=== PATIENT | female | born 1985 ===

== ENCOUNTER 2021-02-14 16:49 | Emergency (ER) | payer MEDICAID, OTHER ==
--- NOTE | 2021-02-14 20:22 | Event Note ---
ED Screening Note Date of service: 02/14/21 Time: 20:20 ED Screening Note: 35-year-old homeless female patient with history of depression presents to the emergency department with complaints of suicidal ideations for several weeks. States she came to the emergency department tonight because "she didn't know where else to go." Patient has never attempted suicide before. States she plans to commit suicide by "cutting herself." Patient's suicidal ideations were previously well controlled with Seroquel. States she has not had this medication in over a year. Endorses polysubstance abuse and alcohol use. Patient has consumed alcohol and used cocaine within the last 24 hours. General: Awake, appropriately interactive, no acute distress. Neck: Supple. Full range of motion intact. Cardiovascular: Normal peripheral perfusion. Pulmonary: No respiratory distress. Patient is speaking normally without use of accessory muscles. Skin: No apparent rashes or lesions. Neurological: No facial asymmetry. Speech is clear. Follows commands. Patient is alert and oriented. Musculoskeletal: Moves all four extremities spontaneously with normal range of motion. Psych: Cooperative. Appropriate mood and affect. I have greeted and performed a focused rapid initial assessment of this patient. A comprehensive ED assessment and evaluation of the patient, analysis of all test results, and completion of the medical decision-making process will be conducted by additional ED providers. This initial assessment/diagnostic orders/clinical plan/treatment(s) is/are subject to change based on patients health status, clinical progression and re-assessment. Further treatment and workup at subsequent clinical provider's discretion. Patient/guardian urged not to elope from the ED as their condition may be serious if not clinically assessed and managed.
[2021-02-14 21:17] LABS: Basophils # (Auto) 0.1 K/mm3 (0.0-0.1); Basophils % (Auto) 0.8 % (0.0-1.8); Eosinophils # (Auto) 0.7 K/mm3 (0.0-0.4); Eosinophils % (Auto) 6.6 % (0.0-4.3); Hematocrit 34.4 % (30.3-42.9); Lymphocytes # (Auto) 2.2 K/mm3 (1.2-5.4); Lymphocytes % (Auto) 20.8 % (13.4-35.0); Mean Corpuscular HGB Conc 32 % (30-34); Mean Corpuscular Volume 70 fl (79-97); Monocytes # (Auto) 0.5 K/mm3 (0.0-0.8); Monocytes % (Auto) 4.9 % (0.0-7.3); Platelet Count 476 K/mm3 (140-440); Red Blood Count 4.95 M/mm3 (3.65-5.03); Red Cell Distribution Width 15.7 % (13.2-15.2)
[2021-02-14 21:30] LABS: Alanine Aminotransferase 12 units/L (7-56); Albumin 4.3 g/dL (3.9-5); BUN/Creatinine Ratio 11; Blood Urea Nitrogen 9 mg/dL (7-17); Hemolysis Index 3
--- NOTE | 2021-02-14 23:50 | Emergency Department Report ---
HPI - General Chief Complaint: Psych Time Seen by Provider: 02/14/21 23:24 - HPI HPI: This is a 35-year-old -Citizen Of [place] female presents to the emergency department with a complaint of a 2-week history of suicidal ideations and depression. The patient says she does not have any particular plan. She denies any current hallucinations or any homicidal ideations. She has a history of bipolar disorder and schizophrenia but says that she has not currently on any medications. She denies any past medical history. She is a tobacco smoker but denies any illicit drug use. ED Past Medical Hx - Past Medical History Previous Medical History?: No Hx Psychiatric Treatment: (denies) - Surgical History Past Surgical History?: Yes Additional Surgical History: ED Review of Systems ROS: Stated complaint: BEAHAVORAL PROBLEMS BODYACHES Other details as noted in HPI Comment: All other systems reviewed and negative Constitutional: denies: chills, fever Eyes: denies: eye pain, vision change ENT: denies: ear pain, throat pain Respiratory: denies: cough, shortness of breath Cardiovascular: denies: chest pain, palpitations Gastrointestinal: denies: abdominal pain, vomiting Musculoskeletal: denies: back pain, arthralgia Neurological: denies: headache, weakness Psychiatric: depression, suicidal thoughts. denies: auditory hallucinations, visual hallucinations, homicidal thoughts Physical Exam - Physical Exam Vital Signs: Vital Signs 02/14/21 18:15 Temperature 98.6 F Pulse Rate 74 Respiratory 18 Rate Blood Pressure 149/94 [Right] O2 Sat by Pulse 99 Oximetry Physical Exam: GENERAL: The patient is well-developed well-nourished. HENT: Normocephalic. Atraumatic. Patient has moist mucous membranes. EYES: Extraocular motions are intact. NECK: Supple. Trachea is midline. CHEST/LUNGS: Clear to auscultation. There is no respiratory distress noted. HEART/CARDIOVASCULAR: Regular. There is no tachycardia. There is no murmur. ABDOMEN: Abdomen is soft, nontender. Patient has normal bowel sounds. SKIN: Skin is warm and dry. NEURO: The patient is awake, alert, and cooperative. The patient has no focal neurologic deficits. Normal speech. MUSCULOSKELETAL: There is no tenderness or deformity. ED Course Vital Signs 02/14/21 18:15 Temperature 98.6 F Pulse Rate 74 Respiratory 18 Rate Blood Pressure 149/94 [Right] O2 Sat by Pulse 99 Oximetry ED Medical Decision Making - Lab Data Result diagrams: 02/14/21 20:33 02/14/21 20:33 Lab Results 02/14/21 02/14/21 02/14/21 Range/Units 20:33 20:33 20:33 WBC 10.4 (4.5-11.0) K/mm3 RBC 4.95 (3.65-5.03) M/mm3 Hgb 11.0 (10.1-14.3) gm/dl Hct 34.4 (30.3-42.9) % MCV 70 L (79-97) fl MCH 22 L (28-32) pg MCHC 32 (30-34) % RDW 15.7 H (13.2-15.2) % Plt Count 476 H (140-440) K/mm3 Lymph % (Auto) 20.8 (13.4-35.0) % [place] % (Auto) 4.9 (0.0-7.3) % Eos % (Auto) 6.6 H (0.0-4.3) % Baso % (Auto) 0.8 (0.0-1.8) % Lymph # (Auto) 2.2 (1.2-5.4) K/mm3 [place] # (Auto) 0.5 (0.0-0.8) K/mm3 Eos # (Auto) 0.7 H (0.0-0.4) K/mm3 Baso # (Auto) 0.1 (0.0-0.1) K/mm3 Seg Neutrophils % 66.9 (40.0-70.0) % Seg Neutrophils # 6.9 (1.8-7.7) K/mm3 Sodium 138 (137-145) mmol/L Potassium 3.7 (3.6-5.0) mmol/L Chloride 101.3 (98-107) mmol/L Carbon Dioxide 25 (22-30) mmol/L Anion Gap 15 mmol/L BUN 9 (7-17) mg/dL Creatinine 0.8 (0.6-1.2) mg/dL Estimated GFR > 60 ml/min BUN/Creatinine Ratio 11 % Glucose 77 (65-100) mg/dL Calcium 9.0 (8.4-10.2) mg/dL Total Bilirubin < 0.20 (0.1-1.2) mg/dL AST 19 (5-40) units/L ALT 12 (7-56) units/L Alkaline Phosphatase 116 (35-129) units/L Total Protein 7.7 (6.3-8.2) g/dL Albumin 4.3 (3.9-5) g/dL Albumin/Globulin Ratio 1.3 % TSH 0.341 (0.270-4.200) mlU/mL HCG, Qual (Negative) Salicylates (2.8-20.0) mg/dL Acetaminophen (10.0-30.0) ug/mL Plasma/Serum Alcohol (0-0.07) % 02/14/21 02/14/21 02/14/21 Range/Units 20:33 20:33 20:33 WBC (4.5-11.0) K/mm3 RBC (3.65-5.03) M/mm3 Hgb (10.1-14.3) gm/dl Hct (30.3-42.9) % MCV (79-97) fl MCH (28-32) pg MCHC (30-34) % RDW (13.2-15.2) % Plt Count (140-440) K/mm3 Lymph % (Auto) (13.4-35.0) % [place] % (Auto) (0.0-7.3) % Eos % (Auto) (0.0-4.3) % Baso % (Auto) (0.0-1.8) % Lymph # (Auto) (1.2-5.4) K/mm3 [place] # (Auto) (0.0-0.8) K/mm3 Eos # (Auto) (0.0-0.4) K/mm3 Baso # (Auto) (0.0-0.1) K/mm3 Seg Neutrophils % (40.0-70.0) % Seg Neutrophils # (1.8-7.7) K/mm3 Sodium (137-145) mmol/L Potassium (3.6-5.0) mmol/L Chloride (98-107) mmol/L Carbon Dioxide (22-30) mmol/L Anion Gap mmol/L BUN (7-17) mg/dL Creatinine (0.6-1.2) mg/dL Estimated GFR ml/min BUN/Creatinine Ratio % Glucose (65-100) mg/dL Calcium (8.4-10.2) mg/dL Total Bilirubin (0.1-1.2) mg/dL AST (5-40) units/L ALT (7-56) units/L Alkaline Phosphatase (35-129) units/L Total Protein (6.3-8.2) g/dL Albumin (3.9-5) g/dL Albumin/Globulin Ratio % TSH (0.270-4.200) mlU/mL HCG, Qual (Negative) Salicylates < 0.3 L (2.8-20.0) mg/dL Acetaminophen 5.0 L (10.0-30.0) ug/mL Plasma/Serum Alcohol < 0.01 (0-0.07) % / Range/Units 20:33 WBC (4.5-11.0) K/mm3 RBC (3.65-5.03) M/mm3 Hgb (10.1-14.3) gm/dl Hct (30.3-42.9) % MCV (79-97) fl MCH (28-32) pg MCHC (30-34) % RDW (13.2-15.2) % Plt Count (140-440) K/mm3 Lymph % (Auto) (13.4-35.0) % [place] % (Auto) (0.0-7.3) % Eos % (Auto) (0.0-4.3) % Baso % (Auto) (0.0-1.8) % Lymph # (Auto) (1.2-5.4) K/mm3 [place] # (Auto) (0.0-0.8) K/mm3 Eos # (Auto) (0.0-0.4) K/mm3 Baso # (Auto) (0.0-0.1) K/mm3 Seg Neutrophils % (40.0-70.0) % Seg Neutrophils # (1.8-7.7) K/mm3 Sodium (137-145) mmol/L Potassium (3.6-5.0) mmol/L Chloride (98-107) mmol/L Carbon Dioxide (22-30) mmol/L Anion Gap mmol/L BUN (7-17) mg/dL Creatinine (0.6-1.2) mg/dL Estimated GFR ml/min BUN/Creatinine Ratio % Glucose (65-100) mg/dL Calcium (8.4-10.2) mg/dL Total Bilirubin (0.1-1.2) mg/dL AST (5-40) units/L ALT (7-56) units/L Alkaline Phosphatase (35-129) units/L Total Protein (6.3-8.2) g/dL Albumin (3.9-5) g/dL Albumin/Globulin Ratio % TSH (0.270-4.200) mlU/mL HCG, Qual Negative (Negative) Salicylates (2.8-20.0) mg/dL Acetaminophen (10.0-30.0) ug/mL Plasma/Serum Alcohol (0-0.07) % - Medical Decision Making This patient presents to the emergency department for a mental health evaluation. She complains of some depression and suicidal ideations without a specific plan. The patient has been made a 1013 and placed on an ED hold secondary to the suicidal ideations. Labs have been mostly unremarkable including CBC, metabolic panel, blood alcohol level and the patient is not . We still do not have a urine sample for urinalysis and UDS. If the patient has a UTI she will require antibiotics. She does not appear acutely intoxicated. Vital signs reassuring throughout her ED course thus far including being afebrile. She will be seen in the morning by the psychiatric team to assist with disposition. This patient appears medically cleared for psychiatric placement. Critical Care Time: No Critical care attestation.: If time is entered above; I have spent that time in minutes in the direct care of this critically ill patient, excluding procedure time. ED Disposition Clinical Impression: Suicidal ideations Disposition: DC/TX-65 PSY HOSP/PSY UNIT Is pt being admited?: No Time of Disposition: 00:50
[2021-02-15 09:47] VITALS: BP 148/88
--- NOTE | 2021-02-15 10:41 | Event Note ---
Date: 02/15/21 S: No events reported overnight O: Vital Signs - 24 hr 02/14/21 02/15/21 18:15 09:46 Temperature 98.6 F 98.3 F Pulse Rate 74 68 Respiratory 18 20 Rate Blood Pressure 149/94 148/88 [Right] O2 Sat by Pulse 99 100 Oximetry O: Vital Signs - 24 hr 02/14/21 02/15/21 18:15 09:46 Temperature 98.6 F 98.3 F Pulse Rate 74 68 Respiratory 18 20 Rate Blood Pressure 149/94 148/88 [Right] O2 Sat by Pulse 99 100 Oximetry A: Suicidal ideation, depression P: Awaiting UA, awaiting psychiatric evaluation
--- NOTE | 2021-02-15 11:01 | Consultation ---
History of Present Illness - Reason for Consult Consult date: 02/15/21 Reason for consult: SI - History of Present Psychiatric Illness Per ER Note: 35-year-old homeless female patient with history of depression presents to the emergency department with complaints of suicidal ideations for several weeks. States she came to the emergency department tonight because "she didn't know where else to go." Patient has never attempted suicide before. States she plans to commit suicide by "cutting herself." Patient's suicidal ideations were previously well controlled with Seroquel. States she has not had this medication in over a year. Endorses polysubstance abuse and alcohol use. Patient has consumed alcohol and used cocaine within the last 24 hours. Leslye Lewis is a 35y/o female patient who endorses suicidal thoughts. Her affect is flat and she makes minimum eye contact. She denies having a plan but says she attempted it before. The patient says he has been off her meds for about a year. She says she was on zyprexa. She says she hears voices "saying things." The patient could not tell me exactly what the voices were saying. The patient does admit to cocaine and THC use. She says she lost her little brother about 2 months ago to gun violence. PAST PSYCHIATRIC HISTORY Diagnoses: Depression, Bipolar Suicide attempts or Self-harm behavior: Yes Prior psychiatric hospitalizations: Yes Substance Abuse history: cocaine Previous psychiatric medications tried: olanzapine Outpatient treatment: No PAST MEDICAL HISTORY: None reported Family Psychiatric History: None reported or documented SOCIAL HISTORY Marital Status: single Living Arrangements: with mother Employment Status: Unemployed Access to guns/weapons: Denies Education: high school History of Abuse: Denies Legal History: Denies REVIEW OF SYSTEMS Constitutional: Negative for weight loss ENT: Negative for stridor Respiratory: Negative for cough or hemoptysis All other systems reviewed and are negative MENTAL STATUS EXAMINATION General Appearance and Behavior: Age appropriate, good hygiene, wearing appropriate clothes, poor eye contact, cooperative Cooperation: Participating/engaged Psychomotor Behavior: Psychomotor normal Mood: depressed Affect and affective range: flat Thought Process: goal directed Thought Content: suicidal thoughts, depression, hopelessness Speech: normal tone and pace Suicidal Ideation: Yes Homicidal Ideation: Denies Hallucinations: Auditory Delusions: None elicited Impulse Control: Impaired Insight and Judgment: Limited insight and judgment Memory: Limited Attention: Attentive Orientation: Alert, oriented Assessment and Plan (1) Bipolar Disorder (2) Cocaine Dependence Treatment Plan 1013 Olanzapine 2.5mg po daily Prozac 10mg po daily Trazodone 50mg po qhs Sitter: Per primary Medical: Per primary Disposition: Recommend acute psychiatric inpatient Will follow Case staffed with Dr. Mccray Medications and Allergies Allergies Allergy/AdvReac Type Severity Reaction Status Date / Time No Known Allergies Allergy Unverified 02/14/21 18:10 Mental Status Exam - Vital signs Last Vital Signs Temp 98.3 F 02/15/21 09:46 Pulse 68 02/15/21 09:46 Resp 20 02/15/21 09:46 BP 148/88 02/15/21 09:46 Pulse Ox 100 02/15/21 09:46 Results Result Diagrams: 02/14/21 20:33 02/14/21 20:33 Abnormal lab results 02/14/21 02/14/21 02/14/21 Range/Units 20:33 20:33 20:33 MCV 70 L (79-97) fl MCH 22 L (28-32) pg RDW 15.7 H (13.2-15.2) % Plt Count 476 H (140-440) K/mm3 Eos % (Auto) 6.6 H (0.0-4.3) % Eos # (Auto) 0.7 H (0.0-0.4) K/mm3 Salicylates < 0.3 L (2.8-20.0) mg/dL Acetaminophen 5.0 L (10.0-30.0) ug/mL All other labs normal.
[2021-02-15] MEDS ORDERED: FLUoxetine 10 MG TAB PO SCH (12:00)
[2021-02-15 13:05] LABS: Amphetamine Screen,Urine Negative; Benzodiazepines Screen,Urine Negative; Methadone Screen,Urine Negative; Opiate Screen,Urine Negative
[2021-02-15 13:20] LABS: Cannabinoid Screen,Urine Positive; Cocaine Screen,Urine Positive
[2021-02-15 14:12] LABS: Bacteria,Urine 1+ /HPF (Negative); Bilirubin,Urine NEG (Negative); Blood,Urine NEG (Negative); Color,Urine Yellow (Yellow); Mucus,Urine 3+ /HPF; Protein,Urine <15 mg/dL mg/dL (Negative); Urobilinogen,Urine < 2.0 mg/dL (<2.0)
[2021-02-15] MEDS ORDERED: traZODone 50 MG TAB PO SCH (22:00)
== END 2021-02-15 16:55 ==
LOC: ED 16:49
DX: R45.851 Suicidal ideations (principal); Z20.822 Contact with and (suspected) exposure to COVID-19; Z98.890 Other specified postprocedural states
CPT/HCPCS: 36415; 80053; 80307; 81001; 84443; 84703; 85025; 87086; 99285; U0003; 80320; G0480